=== PATIENT | female | born 1955 | race Caucasian/White ===

== ENCOUNTER 2017-03-17 09:11 | Day surgery (SDC) | payer OTHER ==
[2017-03-17] MEDS ORDERED: PROPOFOL 500 MG/50 ML EMU IV ONE (10:23)
[2017-03-17 12:07] VITALS: RESP 18
[2017-03-17 12:26] VITALS: BP 151/74; PULSE 78; TEMP 97.4; O2SAT 98
== END 2017-03-17 12:40 | disposition home or self-care (01) ==
LOC: SURG 09:11
PROVIDERS: ATTEND Surgery
DX: Z12.11 Encounter for screening for malignant neoplasm of colon (principal); Z86.010 Personal history of colon polyps; Z80.0 Family history of malignant neoplasm of digestive organs
CPT/HCPCS: 45378; J2704